=== PATIENT | male | born 1955 | race African-American/Black ===

== ENCOUNTER 2016-12-03 09:25 | Day surgery (SDC) | payer OTHER ==
[2016-12-03] MEDS ORDERED: LACTATED RINGERS 1,000 ML IV ONE (09:57)
[2016-12-03] MEDS ORDERED: MIDAZOLAM 2 MG/2 ML VIAL IVP ONE (11:23)
[2016-12-03] MEDS ORDERED: fentaNYL 100 MCG/2 ML VIAL IVP ONE (11:23)
== END 2016-12-03 09:26 | disposition home or self-care (01) ==
PROC: 0DB48ZX Excision of Esophagogastric Junction, Via Natural or Artificial Opening Endoscopic, Diagnostic (ICD-10-PCS; 2016-12-03)
PROC: 0DB68ZX Excision of Stomach, Via Natural or Artificial Opening Endoscopic, Diagnostic (ICD-10-PCS; principal; 2016-12-03 10:30)
DX: K21.9 Gastro-esophageal reflux disease without esophagitis (principal); K25.9 Gastric ulcer, unspecified as acute or chronic, without hemorrhage or perforation; K44.9 Diaphragmatic hernia without obstruction or gangrene
CPT/HCPCS: 43239; J7120

== ENCOUNTER 2017-04-21 08:00 | Outpatient (CLI) | payer OTHER ==
[2017-04-21 19:11] LABS: PT - PROTHROMBIN TIME 11.5 secs (9.9-12.6)
[2017-04-21 19:13] LABS: BASOPHILS % (AUTO) 0.7 %; EOSINOPHILS # (AUTO) 0.1 10^3/uL (0.0-0.7); EOSINOPHILS % (AUTO) 1.9 %; HCT - HEMATOCRIT 43.5 % (42.0-52.0); HGB - HEMOGLOBIN 14.4 g/dL (14.0-18.0); LYMPHOCYTES # (AUTO) 2.4 10^3/uL (1.5-3.5); LYMPHOCYTES % (AUTO) 45.1 %; MEAN CORPUSCULAR HEMOGLOBIN 30.1 pg (27.0-31.0); MEAN CORPUSCULAR HGB CONC 33.1 g/dL (32.0-36.0); MEAN CORPUSCULAR VOLUME 90.9 fL (80.0-94.0); MEAN PLATELET VOLUME 10.8 fL (7.4-11.4); MONOCYTES # (AUTO) 0.5 10^3/uL (0.0-1.0); MONOCYTES % (AUTO) 9.9 %; NEUTROPHILS # (AUTO) 2.3 10^3/uL (1.5-6.6); NEUTROPHILS % (AUTO) 42.4 %; NUCLEATED RED BLOOD CELLS AUTO 0.3 /100WBC; RED BLOOD COUNT 4.79 10^6/uL (4.70-6.10); RED CELL DISTRIBUTION WIDTH 14.7 % (12.0-15.0); UNCORRECTED WHITE BLOOD COUNT 5.3 x10^3/uL; WHITE BLOOD COUNT 5.3 x10^3/uL (4.8-10.8)
[2017-04-21 19:20] LABS: ALBUMIN/GLOBULIN RATIO 1.1 (1.0-2.2); BILIRUBIN,TOTAL 0.7 mg/dL (0.2-1.0); CREATININE 1.1 mg/dL (0.6-1.2); TOTAL PROTEIN 7.1 g/dL (6.7-8.2)
== END 2017-04-21 08:01 | disposition home or self-care (01) ==
LOC: LAB.WCP 08:00
PROVIDERS: ATTEND Family Medicine
DX: B18.2 Chronic viral hepatitis C (principal)
CPT/HCPCS: 36415; 80053; 85025; 85610; 87522

== ENCOUNTER 2017-08-05 08:28 | Day surgery (SDC) | payer OTHER ==
[2017-08-05] MEDS ORDERED: LACTATED RINGERS 1,000 ML IV ONE (08:37)
[2017-08-05] MEDS ORDERED: MIDAZOLAM 2 MG/2 ML VIAL IVP ONE (09:50)
[2017-08-05] MEDS ORDERED: fentaNYL 100 MCG/2 ML VIAL IVP ONE (09:50)
[2017-08-05 11:07] VITALS: BP 130/70
== END 2017-08-05 08:29 | disposition home or self-care (01) ==
LOC: SDS 08:28
PROVIDERS: ATTEND Internal Medicine
PROC: 0DBN8ZX Excision of Sigmoid Colon, Via Natural or Artificial Opening Endoscopic, Diagnostic (ICD-10-PCS; principal; 2017-08-05 09:30)
DX: K63.5 Polyp of colon (principal); K64.8 Other hemorrhoids; B18.2 Chronic viral hepatitis C; F17.290 Nicotine dependence, other tobacco product, uncomplicated
CPT/HCPCS: 45380; 88305; J7120

== ENCOUNTER 2018-04-05 14:25 | Outpatient (CLI) | payer OTHER ==
[2018-04-05 18:53] LABS: BASOPHILS % (AUTO) 0.7 %; EOSINOPHILS # (AUTO) 0.1 10^3/uL (0.0-0.7); EOSINOPHILS % (AUTO) 1.8 %; HGB - HEMOGLOBIN 13.4 g/dL (14.0-18.0); LYMPHOCYTES # (AUTO) 2.9 10^3/uL (1.5-3.5); LYMPHOCYTES % (AUTO) 56.6 %; MEAN CORPUSCULAR HEMOGLOBIN 29.7 pg (27.0-31.0); MEAN CORPUSCULAR HGB CONC 32.6 g/dL (32.0-36.0); MEAN CORPUSCULAR VOLUME 91.1 fL (80.0-94.0); MEAN PLATELET VOLUME 11.3 fL (7.4-11.4); MONOCYTES # (AUTO) 0.4 10^3/uL (0.0-1.0); MONOCYTES % (AUTO) 8.2 %; NEUTROPHILS # (AUTO) 1.7 10^3/uL (1.5-6.6); NEUTROPHILS % (AUTO) 32.7 %; PLT - PLATELET COUNT 156 10^3/uL (130-450); RED BLOOD COUNT 4.53 10^6/uL (4.70-6.10); RED CELL DISTRIBUTION WIDTH 14.4 % (12.0-15.0); WHITE BLOOD COUNT 5.1 x10^3/uL (4.8-10.8)
[2018-04-05 19:20] LABS: ALBUMIN/GLOBULIN RATIO 1.3 (1.0-2.2); BILIRUBIN,TOTAL 0.6 mg/dL (0.2-1.0); CALCIUM 9.1 mg/dL (8.5-10.3); CREATININE 1.2 mg/dL (0.6-1.2); TOTAL PROTEIN 7.2 g/dL (6.7-8.2)
[2018-04-05 19:27] LABS: PSA FREE 0.892 ng/mL (0.16-2.81)
[2018-04-05 19:28] LABS: PSA TOTAL 2.106 ng/mL (0.000-2.000)
== END 2018-04-05 14:26 ==
LOC: LAB.WCP 14:25
PROVIDERS: ATTEND Physician Assistant Medical
DX: R63.4 Abnormal weight loss (principal); R97.20 Elevated prostate specific antigen [PSA]
CPT/HCPCS: 36415; 80053; 84154; 85025

== ENCOUNTER 2018-04-26 14:54 | Outpatient (CLI) | payer OTHER ==
--- NOTE | 2018-04-28 13:29 | CT Report ---
Procedure Date: 04/27/2018 Accession Number: [id number] / [id number] Procedure: CT - Chest/Lung Screen Low Dose W/O CPT Code: FULL RESULT: EXAM CT LUNG SCREEN EXAM DATE: 04/26/2018 03:07 PM. HISTORY: 62-year-old patient with smoking history. Currently smoking: Yes. Tobacco abuse. Years since quitting: None. COMPARISON: None. TECHNIQUE: CT examination of the entire thorax without contrast was performed using low-dose technique. Thin section coronal, axial, sagittal and MIP axial images were obtained. In accordance with CT protocol optimization, one or more of the following dose reduction techniques were utilized for this exam: automated exposure control, adjustment of mA and/or KV based on patient size, or use of iterative reconstructive technique. FINDINGS: Nodules: Right upper lobe: None. Right middle lobe: None. Right lower lobe: None. Left upper lobe: Lobular left upper lobe 5 mm nodule (image 46, series 4). Left lower lobe: None. Emphysema: None. Pleura: Unremarkable. Aorta: Unremarkable. Mediastinum: Visualized thyroid gland is unremarkable. No enlarged mediastinal or hilar lymph nodes. Heart size is normal. Coronary calcifications: None. Other pulmonary findings: Anterior lingular subpleural opacity possibly scar/atelectasis versus small area of fibrosis, less typical for consolidation. Other extrapulmonary findings: Included portions of the liver, spleen, adrenals, pancreas, kidneys, stomach, and colon are unremarkable. Degenerative changes of the thoracic spine. No acute osseous abnormalities. Thoracic dextroscoliosis. IMPRESSION: Lung-RADS ASSESSMENT CATEGORY: 1 - benign appearance or behavior Probability of malignancy: Less than 1% RECOMMENDATION: Recommend follow-up with continued annual screening with low-dose CT in 12 months. RADIA
== END 2018-04-26 14:55 | disposition home or self-care (01) ==
LOC: DI 14:54
PROVIDERS: ATTEND Physician Assistant Medical
DX: F17.290 Nicotine dependence, other tobacco product, uncomplicated (principal)

== ENCOUNTER 2019-07-27 08:00 | Outpatient (CLI) | payer OTHER ==
[2019-07-27 12:24] LABS: BASOPHILS % (AUTO) 0.7 %; EOSINOPHILS # (AUTO) 0.1 10^3/uL (0.0-0.7); EOSINOPHILS % (AUTO) 2.2 %; HGB - HEMOGLOBIN 13.7 g/dL (14.0-18.0); LYMPHOCYTES # (AUTO) 2.7 10^3/uL (1.5-3.5); LYMPHOCYTES % (AUTO) 45.7 %; MEAN CORPUSCULAR HEMOGLOBIN 29.8 pg (27.0-31.0); MEAN CORPUSCULAR HGB CONC 32.5 g/dL (32.0-36.0); MEAN CORPUSCULAR VOLUME 91.7 fL (80.0-94.0); MONOCYTES # (AUTO) 0.6 10^3/uL (0.0-1.0); MONOCYTES % (AUTO) 10.2 %; NEUTROPHILS # (AUTO) 2.4 10^3/uL (1.5-6.6); PLT - PLATELET COUNT 171 10^3/uL (130-450); RED CELL DISTRIBUTION WIDTH 14.6 % (12.0-15.0); WHITE BLOOD COUNT 5.9 x10^3/uL (4.8-10.8)
[2019-07-27 13:09] LABS: ALBUMIN 4.1 g/dL (3.2-5.5); ALBUMIN/GLOBULIN RATIO 1.3 (1.0-2.2); ALKALINE PHOSPHATASE 90 IU/L (42-121); ALT ALANINE AMINOTRANSFERASE 28 IU/L (10-60); AST ASPARTATE AMINOTRANSFERASE 32 IU/L (10-42); BILIRUBIN,TOTAL 0.6 mg/dL (0.2-1.0); BUN - BLOOD UREA NITROGEN 13 mg/dL (6-20); CALCIUM 9.3 mg/dL (8.5-10.3); CARBON DIOXIDE - CO2 30 mmol/L (21-32); CHLORIDE 103 mmol/L (101-111); CHOL/HDL RATIO 3.6 (<5.0); CHOLESTEROL 148 mg/dL; CREATININE 1.2 mg/dL (0.6-1.2); GFR - MDRD 74 (>89); GLUCOSE 93 mg/dL (70-100); HDL CHOLESTEROL 41 mg/dL; LDL CHOLESTEROL,CALCULATED 89 mg/dL; LDL/HDL RATIO 2.2 (<3.6); SODIUM 141 mmol/L (135-145); TOTAL PROTEIN 7.2 g/dL (6.7-8.2); VLDL CHOLESTEROL 18 mg/dL
== END 2019-07-27 23:59 | disposition home or self-care (01) ==
LOC: LAB.WCP 08:00
PROVIDERS: ATTEND Family Medicine
DX: E78.5 Hyperlipidemia, unspecified (principal); B18.2 Chronic viral hepatitis C; R03.0 Elevated blood-pressure reading, without diagnosis of hypertension; Z12.5 Encounter for screening for malignant neoplasm of prostate
CPT/HCPCS: 36415; 80053; 80061; 83721; 84153; 84443; 85025

== ENCOUNTER 2019-10-28 07:15 | Outpatient (CLI) | payer OTHER ==
[2019-10-28 12:39] LABS: BASOPHILS % (AUTO) 0.7 %; EOSINOPHILS # (AUTO) 0.2 10^3/uL (0.0-0.7); EOSINOPHILS % (AUTO) 3.1 %; LYMPHOCYTES # (AUTO) 2.4 10^3/uL (1.5-3.5); LYMPHOCYTES % (AUTO) 41.5 %; MEAN CORPUSCULAR HEMOGLOBIN 29.3 pg (27.0-31.0); MEAN CORPUSCULAR HGB CONC 31.6 g/dL (32.0-36.0); MEAN CORPUSCULAR VOLUME 92.8 fL (80.0-94.0); MEAN PLATELET VOLUME 12.8 fL (7.4-11.4); MONOCYTES # (AUTO) 0.6 10^3/uL (0.0-1.0); MONOCYTES % (AUTO) 10.5 %; NEUTROPHILS # (AUTO) 2.5 10^3/uL (1.5-6.6); PLT - PLATELET COUNT 163 10^3/uL (130-450); RED BLOOD COUNT 4.43 10^6/uL (4.70-6.10); WHITE BLOOD COUNT 5.7 x10^3/uL (4.8-10.8)
[2019-10-28 12:53] LABS: ALBUMIN 4.2 g/dL (3.2-5.5); ALBUMIN/GLOBULIN RATIO 1.2 (1.0-2.2); BILIRUBIN,TOTAL 0.6 mg/dL (0.2-1.0); CALCIUM 8.9 mg/dL (8.5-10.3); CREATININE 1.3 mg/dL (0.6-1.2); TOTAL PROTEIN 7.6 g/dL (6.7-8.2)
== END 2019-10-28 23:59 | disposition home or self-care (01) ==
LOC: LAB.WCP 07:15
PROVIDERS: ATTEND Internal Medicine Gastroenterology
DX: B18.2 Chronic viral hepatitis C (principal)
CPT/HCPCS: 36415; 80053; 85025; 87522

== ENCOUNTER 2019-11-23 09:10 | Outpatient (CLI) | payer OTHER ==
--- NOTE | 2019-11-23 21:09 | XRAY Report ---
Reason: PNEUMONIA,RT UPPER LOBE Procedure Date: 11/23/2019 Accession Number: [id number] / [id number] Procedure: XR - Chest 2 View X-Ray CPT Code: 54852 Final Report FULL RESULT: EXAM: CHEST RADIOGRAPHY EXAM DATE: 11/23/2019 09:20 AM. CLINICAL HISTORY: PNEUMONIA,RT UPPER LOBE. COMPARISON: CHEST SCREEN LOW DOSE W/O 04/26/2018 3:02 PM. TECHNIQUE: 2 views. FINDINGS: Lungs/Pleura: No focal opacities evident. No pleural effusion. No pneumothorax. Normal volumes. Mediastinum: Heart and mediastinal contours are unremarkable. Other: Lower cervical spine disk space implant. IMPRESSION: Negative chest. Lungs are clear. RADIA
== END 2019-11-23 09:11 | disposition home or self-care (01) ==
LOC: DI 09:10
PROVIDERS: ATTEND Family Medicine
DX: J18.9 Pneumonia, unspecified organism (principal)
CPT/HCPCS: 71046

== ENCOUNTER 2019-12-23 07:00 | Outpatient (CLI) | payer OTHER ==
[2019-12-23 12:44] LABS: BASOPHILS % (AUTO) 0.7 %; EOSINOPHILS # (AUTO) 0.2 10^3/uL (0.0-0.7); EOSINOPHILS % (AUTO) 2.5 %; HGB - HEMOGLOBIN 11.2 g/dL (14.0-18.0); LYMPHOCYTES # (AUTO) 2.1 10^3/uL (1.5-3.5); LYMPHOCYTES % (AUTO) 35.8 %; MEAN CORPUSCULAR HEMOGLOBIN 30.1 pg (27.0-31.0); MEAN CORPUSCULAR HGB CONC 32.2 g/dL (32.0-36.0); MEAN CORPUSCULAR VOLUME 93.5 fL (80.0-94.0); MEAN PLATELET VOLUME 12.6 fL (7.4-11.4); MONOCYTES # (AUTO) 0.6 10^3/uL (0.0-1.0); MONOCYTES % (AUTO) 9.9 %; NEUTROPHILS % (AUTO) 50.8 %; PLT - PLATELET COUNT 168 10^3/uL (130-450); RED BLOOD COUNT 3.72 10^6/uL (4.70-6.10); RED CELL DISTRIBUTION WIDTH 15.7 % (12.0-15.0)
[2019-12-23 13:09] LABS: ALBUMIN 3.4 g/dL (3.2-5.5); BILIRUBIN,TOTAL 0.5 mg/dL (0.2-1.0); CALCIUM 8.6 mg/dL (8.5-10.3); CREATININE 1.1 mg/dL (0.6-1.2); PSA FREE 1.02 ng/mL (0.16-2.81); TOTAL PROTEIN 6.8 g/dL (6.7-8.2)
[2019-12-23 13:10] LABS: PSA TOTAL 3.27 ng/mL (0.000-2.000)
== END 2019-12-23 23:59 | disposition home or self-care (01) ==
LOC: LAB.WCP 07:00
PROVIDERS: ATTEND Family Medicine
DX: B18.2 Chronic viral hepatitis C (principal); R97.20 Elevated prostate specific antigen [PSA]
CPT/HCPCS: 36415; 80053; 84153; 84154; 85025; 87522

== ENCOUNTER 2020-04-02 08:36 | Outpatient (CLI) | payer OTHER ==
[2020-04-02 13:52] LABS: BASOPHILS % (AUTO) 0.7 %; EOSINOPHILS # (AUTO) 0.1 10^3/uL (0.0-0.7); EOSINOPHILS % (AUTO) 3.3 %; HGB - HEMOGLOBIN 12.7 g/dL (14.0-18.0); LYMPHOCYTES # (AUTO) 1.9 10^3/uL (1.5-3.5); LYMPHOCYTES % (AUTO) 45.1 %; MEAN CORPUSCULAR HEMOGLOBIN 28.5 pg (27.0-31.0); MEAN CORPUSCULAR HGB CONC 31.7 g/dL (32.0-36.0); MEAN CORPUSCULAR VOLUME 90.1 fL (80.0-94.0); MEAN PLATELET VOLUME 12.2 fL (7.4-11.4); MONOCYTES # (AUTO) 0.4 10^3/uL (0.0-1.0); NEUTROPHILS # (AUTO) 1.8 10^3/uL (1.5-6.6); NEUTROPHILS % (AUTO) 40.9 %; PLT - PLATELET COUNT 156 10^3/uL (130-450); RED BLOOD COUNT 4.45 10^6/uL (4.70-6.10); RED CELL DISTRIBUTION WIDTH 14.6 % (12.0-15.0); WHITE BLOOD COUNT 4.3 x10^3/uL (4.8-10.8)
[2020-04-02 14:17] LABS: ALBUMIN 3.9 g/dL (3.2-5.5); ALBUMIN/GLOBULIN RATIO 1.1 (1.0-2.2); BILIRUBIN,TOTAL 0.5 mg/dL (0.2-1.0); CREATININE 1.2 mg/dL (0.6-1.2); TOTAL PROTEIN 7.3 g/dL (6.7-8.2)
== END 2020-04-02 23:59 | disposition home or self-care (01) ==
LOC: LAB.WCP 08:36
PROVIDERS: ATTEND Internal Medicine Gastroenterology
DX: B18.2 Chronic viral hepatitis C (principal)
CPT/HCPCS: 36415; 80053; 85025; 87902

== ENCOUNTER 2020-11-29 07:44 | Outpatient (CLI) | payer OTHER ==
[2020-11-29 11:53] LABS: BASOPHILS % (AUTO) 0.6 %; EOSINOPHILS # (AUTO) 0.1 10^3/uL (0.0-0.7); EOSINOPHILS % (AUTO) 1.7 %; HGB - HEMOGLOBIN 10.1 g/dL (14.0-18.0); LYMPHOCYTES # (AUTO) 1.3 10^3/uL (1.5-3.5); LYMPHOCYTES % (AUTO) 23.8 %; MEAN CORPUSCULAR VOLUME 93.8 fL (80.0-94.0); MEAN PLATELET VOLUME 11.6 fL (7.4-11.4); MONOCYTES # (AUTO) 0.5 10^3/uL (0.0-1.0); MONOCYTES % (AUTO) 9.3 %; NEUTROPHILS # (AUTO) 3.4 10^3/uL (1.5-6.6); NEUTROPHILS % (AUTO) 64.4 %; PLT - PLATELET COUNT 179 10^3/uL (130-450); RED BLOOD COUNT 3.37 10^6/uL (4.70-6.10); RED CELL DISTRIBUTION WIDTH 13.7 % (12.0-15.0); WHITE BLOOD COUNT 5.3 x10^3/uL (4.8-10.8)
[2020-11-29 12:30] LABS: ALBUMIN 3.8 g/dL (3.2-5.5); ALBUMIN/GLOBULIN RATIO 1.1 (1.0-2.2); ALKALINE PHOSPHATASE 89 IU/L (42-121); ALT ALANINE AMINOTRANSFERASE 17 IU/L (10-60); AST ASPARTATE AMINOTRANSFERASE 23 IU/L (10-42); BILIRUBIN,TOTAL 0.4 mg/dL (0.2-1.0); BUN - BLOOD UREA NITROGEN 17 mg/dL (6-20); CALCIUM 8.9 mg/dL (8.5-10.3); CARBON DIOXIDE - CO2 25 mmol/L (21-32); CHLORIDE 108 mmol/L (101-111); CHOL/HDL RATIO 2.9 (<5.0); CHOLESTEROL 84 mg/dL; CREATININE 1.2 mg/dL (0.6-1.2); GLUCOSE 100 mg/dL (70-100); HDL CHOLESTEROL 29 mg/dL; LDL CHOLESTEROL,CALCULATED 47 mg/dL; LDL/HDL RATIO 1.6 (<3.6); SODIUM 140 mmol/L (135-145); TOTAL PROTEIN 7.3 g/dL (6.7-8.2); VLDL CHOLESTEROL 8 mg/dL
== END 2020-11-29 23:59 | disposition home or self-care (01) ==
LOC: LAB.WCP 07:44
PROVIDERS: ATTEND Family Medicine
DX: B18.2 Chronic viral hepatitis C (principal); E78.5 Hyperlipidemia, unspecified; R97.20 Elevated prostate specific antigen [PSA]; R03.0 Elevated blood-pressure reading, without diagnosis of hypertension; L03.90 Cellulitis, unspecified
CPT/HCPCS: 36415; 80053; 80061; 83721; 84153; 84443; 85025

== ENCOUNTER 2021-07-11 08:00 | Outpatient (CLI) | payer OTHER ==
[2021-07-11 11:54] LABS: ALBUMIN 3.8 g/dL (3.2-5.5); BILIRUBIN,DIRECT 0.1 mg/dL (0.1-0.5); BILIRUBIN,TOTAL 0.5 mg/dL (0.2-1.0)
== END 2021-07-11 23:59 | disposition home or self-care (01) ==
LOC: LAB.WCP 08:00
PROVIDERS: ATTEND Family Medicine
DX: B18.2 Chronic viral hepatitis C (principal)
CPT/HCPCS: 36415; 80076

== ENCOUNTER 2022-02-18 07:07 | Outpatient (CLI) | payer OTHER, MEDICARE ==
[2022-02-18 12:36] LABS: BASOPHILS % (AUTO) 0.7 %; EOSINOPHILS # (AUTO) 0.1 10^3/uL (0.0-0.7); EOSINOPHILS % (AUTO) 1.9 %; HCT - HEMATOCRIT 33.3 % (42.0-52.0); HGB - HEMOGLOBIN 10.2 g/dL (14.0-18.0); LYMPHOCYTES # (AUTO) 1.6 10^3/uL (1.5-3.5); LYMPHOCYTES % (AUTO) 39.7 %; MEAN CORPUSCULAR HEMOGLOBIN 24.3 pg (27.0-31.0); MEAN CORPUSCULAR HGB CONC 30.6 g/dL (32.0-36.0); MEAN CORPUSCULAR VOLUME 79.5 fL (80.0-94.0); MEAN PLATELET VOLUME 11.3 fL (7.4-11.4); MONOCYTES # (AUTO) 0.5 10^3/uL (0.0-1.0); MONOCYTES % (AUTO) 12.8 %; NEUTROPHILS # (AUTO) 1.8 10^3/uL (1.5-6.6); NEUTROPHILS % (AUTO) 44.7 %; PLT - PLATELET COUNT 206 10^3/uL (130-450); RED BLOOD COUNT 4.19 10^6/uL (4.70-6.10); RED CELL DISTRIBUTION WIDTH 18.9 % (12.0-15.0); WHITE BLOOD COUNT 4.1 x10^3/uL (4.8-10.8)
[2022-02-18 13:28] LABS: THYROID STIMULATING HORMONE 1.14 uIU/mL (0.34-5.60)
[2022-02-18 13:43] LABS: ALBUMIN/GLOBULIN RATIO 1.4 (1.0-2.2); ALKALINE PHOSPHATASE 98 IU/L (42-121); ALT ALANINE AMINOTRANSFERASE 17 IU/L (10-60); AST ASPARTATE AMINOTRANSFERASE 20 IU/L (10-42); BILIRUBIN,TOTAL 0.7 mg/dL (0.2-1.0); BUN - BLOOD UREA NITROGEN 16 mg/dL (6-20); CALCIUM 8.9 mg/dL (8.5-10.3); CARBON DIOXIDE - CO2 26 mmol/L (21-32); CHLORIDE 105 mmol/L (101-111); CHOL/HDL RATIO 2.4 (<5.0); CHOLESTEROL 96 mg/dL; CREATININE 1.3 mg/dL (0.6-1.2); GFR - MDRD 67 (>89); GLUCOSE 91 mg/dL (70-100); HDL CHOLESTEROL 40 mg/dL; POTASSIUM 3.8 mmol/L (3.5-5.0); SODIUM 138 mmol/L (135-145); TOTAL PROTEIN 6.9 g/dL (6.7-8.2); TRIGLYCERIDES 39 mg/dL
[2022-02-20 19:50] LABS: HCV RNA QNT <1.18 NOT DETECTED Log IU/mL; HCV RNA QUANT RT PCR <15 NOT DETECTED IU/mL
== END 2022-02-18 07:08 | disposition home or self-care (01) ==
LOC: LAB.N 07:07
PROVIDERS: ATTEND Family Medicine
DX: I10 Essential (primary) hypertension (principal); I25.10 Atherosclerotic heart disease of native coronary artery without angina pectoris; M54.12 Radiculopathy, cervical region; B18.2 Chronic viral hepatitis C; E78.5 Hyperlipidemia, unspecified
CPT/HCPCS: 36415; 80053; 80061; 83721; 84443; 85025; 87522

== ENCOUNTER 2022-04-03 07:15 | Outpatient (CLI) | payer OTHER, MEDICARE ==
[2022-04-03 12:35] LABS: FERRITIN 6.9 ng/mL (23.9-336.2)
[2022-04-03 12:50] LABS: % IRON SATURATION 4 % (20-50); IRON 18 ug/dL (45-182); TOTAL IRON BINDING CAPACITY 486 ug/dL (250-450); TRANSFERRIN 347 mg/dL (180-329)
== END 2022-04-03 07:16 | disposition home or self-care (01) ==
LOC: LAB.N 07:15
PROVIDERS: ATTEND Family Medicine
DX: D64.9 Anemia, unspecified (principal)
CPT/HCPCS: 36415; 82607; 82728; 83540; 84466

== ENCOUNTER 2022-04-04 08:00 | Outpatient (CLI) | payer OTHER, MEDICARE ==
[2022-04-04 13:22] LABS: FECAL OCCULT BLOOD (FIT) NEGATIVE (NEGATIVE)
== END 2022-04-04 23:59 | disposition home or self-care (01) ==
LOC: LAB.R 08:00
PROVIDERS: ATTEND Family Medicine
DX: D64.9 Anemia, unspecified (principal)
CPT/HCPCS: 82274

== ENCOUNTER 2022-04-04 12:16 | Outpatient (CLI) | payer OTHER, MEDICARE ==
[2022-04-04 17:46] LABS: BILIRUBIN,URINE NEGATIVE (NEGATIVE); GLUCOSE, URINE (UA) NEGATIVE (NEGATIVE); KETONES,URINE (UA) NEGATIVE (NEGATIVE); LEUKOCYTE ESTERASE, URINE NEGATIVE (NEGATIVE); NITRITE,URINE NEGATIVE (NEGATIVE); OCCULT BLOOD,URINE NEGATIVE (NEGATIVE); PH,URINE 5.5 PH (5.0-7.5); PROTEIN,URINE NEGATIVE (NEGATIVE); UROBILINOGEN,URINE 0.2 (NORMAL) E.U./dL (NORMAL)
[2022-04-04 17:50] LABS: CLARITY,URINE CLEAR (CLEAR)
[2022-04-04 17:55] LABS: BACTERIA,URINE None Seen /HPF (None Seen); RBC,URINE 0-5 /HPF (0-5); SQUAMOUS EPITHELIAL CELL,UR NONE SEEN (<= Few); WBC,URINE 0-3 /HPF (0-3)
== END 2022-04-04 12:17 | disposition home or self-care (01) ==
LOC: LAB.N 12:16
PROVIDERS: ATTEND Internal Medicine
DX: N40.1 Benign prostatic hyperplasia with lower urinary tract symptoms (principal); D64.9 Anemia, unspecified
CPT/HCPCS: 36415; 81001; 82274; 84153; 87086

== ENCOUNTER 2022-06-11 07:16 | Outpatient (CLI) | payer OTHER, MEDICARE ==
[2022-06-11 12:13] LABS: ABSOLUTE RETICS # AUTO 0.056 10^6/uL (0.020-0.110); BASOPHILS % (AUTO) 0.6 %; EOSINOPHILS # (AUTO) 0.1 10^3/uL (0.0-0.7); HCT - HEMATOCRIT 39.1 % (42.0-52.0); HGB - HEMOGLOBIN 12.9 g/dL (14.0-18.0); LYMPHOCYTES # (AUTO) 1.6 10^3/uL (1.5-3.5); LYMPHOCYTES % (AUTO) 32.8 %; MEAN CORPUSCULAR HEMOGLOBIN 27.9 pg (27.0-31.0); MEAN CORPUSCULAR VOLUME 84.6 fL (80.0-94.0); MONOCYTES # (AUTO) 0.6 10^3/uL (0.0-1.0); MONOCYTES % (AUTO) 12.3 %; NEUTROPHILS # (AUTO) 2.5 10^3/uL (1.5-6.6); NEUTROPHILS % (AUTO) 52.1 %; PLT - PLATELET COUNT 141 10^3/uL (130-450); RED BLOOD COUNT 4.62 10^6/uL (4.70-6.10); RED CELL DISTRIBUTION WIDTH 23.3 % (12.0-15.0); RETICULOCYTE COUNT % (AUTO) 1.21 % (0.5-2.3); WHITE BLOOD COUNT 4.9 x10^3/uL (4.8-10.8)
[2022-06-11 12:30] LABS: % IRON SATURATION 24 % (20-50); ALBUMIN/GLOBULIN RATIO 1.3 (1.0-2.2); ALKALINE PHOSPHATASE 82 IU/L (42-121); ALT ALANINE AMINOTRANSFERASE 15 IU/L (10-60); AST ASPARTATE AMINOTRANSFERASE 20 IU/L (10-42); BILIRUBIN,TOTAL 0.7 mg/dL (0.2-1.0); BUN - BLOOD UREA NITROGEN 15 mg/dL (6-20); CALCIUM 9.1 mg/dL (8.5-10.3); CARBON DIOXIDE - CO2 29 mmol/L (21-32); CHLORIDE 105 mmol/L (101-111); CHOL/HDL RATIO 2.5 (<5.0); CHOLESTEROL 96 mg/dL; CREATININE 1.3 mg/dL (0.6-1.2); GFR - MDRD 67 (>89); GLUCOSE 91 mg/dL (70-100); HDL CHOLESTEROL 39 mg/dL; IRON 90 ug/dL (45-182); LDL CHOLESTEROL,CALCULATED 48 mg/dL; LDL/HDL RATIO 1.2 (<3.6); POTASSIUM 3.8 mmol/L (3.5-5.0); SODIUM 141 mmol/L (135-145); TOTAL IRON BINDING CAPACITY 378 ug/dL (250-450); TOTAL PROTEIN 7.2 g/dL (6.7-8.2); TRANSFERRIN 270 mg/dL (180-329); TRIGLYCERIDES 47 mg/dL; VLDL CHOLESTEROL 9 mg/dL
[2022-06-11 12:41] LABS: THYROID STIMULATING HORMONE 1.39 uIU/mL (0.34-5.60)
[2022-06-11 12:45] LABS: FERRITIN 25.1 ng/mL (23.9-336.2)
[2022-06-11 12:52] LABS: PLATELET ESTIMATE, MANUAL NORMAL (130-450,000) (NORMAL); PLATELET MORPHOLOGY NORMAL APPEARANCE (NORMAL); RBC MORPHOLOGY (MULTIPLE) 3+ ANISOCYTOSIS (NORMAL); SLIDE REVIEW? Indicated; WBC MORPHOLOGY (MULTIPLE) NORMAL APPEARANCE (NORMAL)
== END 2022-06-11 07:17 | disposition home or self-care (01) ==
LOC: LAB.N 07:16
PROVIDERS: ATTEND Family Medicine
DX: D50.9 Iron deficiency anemia, unspecified (principal); I10 Essential (primary) hypertension; I25.10 Atherosclerotic heart disease of native coronary artery without angina pectoris; Z12.5 Encounter for screening for malignant neoplasm of prostate; E78.5 Hyperlipidemia, unspecified; K21.9 Gastro-esophageal reflux disease without esophagitis; Z72.0 Tobacco use
CPT/HCPCS: 36415; 80053; 80061; 82728; 83540; 83721; 84153; 84443; 84466; 85025; 85045

== ENCOUNTER 2022-08-14 08:16 | Outpatient (CLI) | payer OTHER, MEDICARE ==
[2022-08-14 12:02] LABS: ABSOLUTE RETICS # AUTO 0.056 10^6/uL (0.020-0.110); BASOPHILS % (AUTO) 0.6 %; EOSINOPHILS # (AUTO) 0.1 10^3/uL (0.0-0.7); EOSINOPHILS % (AUTO) 1.7 %; HCT - HEMATOCRIT 39.2 % (42.0-52.0); LYMPHOCYTES # (AUTO) 1.7 10^3/uL (1.5-3.5); LYMPHOCYTES % (AUTO) 35.6 %; MEAN CORPUSCULAR HEMOGLOBIN 29.7 pg (27.0-31.0); MEAN CORPUSCULAR HGB CONC 33.2 g/dL (32.0-36.0); MEAN CORPUSCULAR VOLUME 89.7 fL (80.0-94.0); MEAN PLATELET VOLUME 11.8 fL (7.4-11.4); MONOCYTES # (AUTO) 0.5 10^3/uL (0.0-1.0); MONOCYTES % (AUTO) 9.9 %; NEUTROPHILS # (AUTO) 2.4 10^3/uL (1.5-6.6); NEUTROPHILS % (AUTO) 52.2 %; PLT - PLATELET COUNT 132 10^3/uL (130-450); RED BLOOD COUNT 4.37 10^6/uL (4.70-6.10); RED CELL DISTRIBUTION WIDTH 17.5 % (12.0-15.0); RETICULOCYTE COUNT % (AUTO) 1.27 % (0.5-2.3); WHITE BLOOD COUNT 4.6 x10^3/uL (4.8-10.8)
[2022-08-14 13:07] LABS: % IRON SATURATION 21 % (20-50); IRON 63 ug/dL (45-182); TOTAL IRON BINDING CAPACITY 305 ug/dL (250-450); TRANSFERRIN 218 mg/dL (180-329)
== END 2022-08-14 08:17 | disposition home or self-care (01) ==
LOC: LAB.N 08:16
PROVIDERS: ATTEND Family Medicine
DX: D50.9 Iron deficiency anemia, unspecified (principal)
CPT/HCPCS: 36415; 82728; 83540; 84466; 85025; 85045

== ENCOUNTER 2022-09-05 09:10 | Outpatient (CLI) | payer OTHER, MEDICARE ==
[2022-09-05 12:29] LABS: BASOPHILS % (AUTO) 0.5 %; EOSINOPHILS # (AUTO) 0.1 10^3/uL (0.0-0.7); EOSINOPHILS % (AUTO) 1.5 %; HCT - HEMATOCRIT 38.4 % (42.0-52.0); HGB - HEMOGLOBIN 12.4 g/dL (14.0-18.0); LYMPHOCYTES # (AUTO) 1.4 10^3/uL (1.5-3.5); MEAN CORPUSCULAR HGB CONC 32.3 g/dL (32.0-36.0); MEAN PLATELET VOLUME 11.6 fL (7.4-11.4); MONOCYTES # (AUTO) 0.4 10^3/uL (0.0-1.0); MONOCYTES % (AUTO) 10.4 %; NEUTROPHILS # (AUTO) 2.2 10^3/uL (1.5-6.6); NEUTROPHILS % (AUTO) 53.4 %; PLT - PLATELET COUNT 126 10^3/uL (130-450); RED BLOOD COUNT 4.13 10^6/uL (4.70-6.10); RED CELL DISTRIBUTION WIDTH 15.9 % (12.0-15.0); WHITE BLOOD COUNT 4.1 x10^3/uL (4.8-10.8)
== END 2022-09-05 09:11 | disposition home or self-care (01) ==
LOC: LAB.N 09:10
PROVIDERS: ATTEND Family Medicine
DX: D64.9 Anemia, unspecified (principal)
CPT/HCPCS: 36415; 85025

== ENCOUNTER 2023-06-12 07:14 | Outpatient (CLI) | payer OTHER, MEDICARE ==
[2023-06-12 12:31] LABS: BASOPHILS % (AUTO) 0.5 %; EOSINOPHILS # (AUTO) 0.1 10^3/uL (0.0-0.7); EOSINOPHILS % (AUTO) 1.8 %; HCT - HEMATOCRIT 41.6 % (42.0-52.0); HGB - HEMOGLOBIN 13.6 g/dL (14.0-18.0); LYMPHOCYTES # (AUTO) 1.7 10^3/uL (1.5-3.5); LYMPHOCYTES % (AUTO) 30.4 %; MEAN CORPUSCULAR HEMOGLOBIN 30.3 pg (27.0-31.0); MEAN CORPUSCULAR HGB CONC 32.7 g/dL (32.0-36.0); MEAN CORPUSCULAR VOLUME 92.7 fL (80.0-94.0); MEAN PLATELET VOLUME 12.6 fL (7.4-11.4); MONOCYTES # (AUTO) 0.7 10^3/uL (0.0-1.0); MONOCYTES % (AUTO) 11.8 %; NEUTROPHILS # (AUTO) 3.2 10^3/uL (1.5-6.6); NEUTROPHILS % (AUTO) 55.3 %; PLT - PLATELET COUNT 150 10^3/uL (130-450); RED BLOOD COUNT 4.49 10^6/uL (4.70-6.10); RED CELL DISTRIBUTION WIDTH 14.8 % (12.0-15.0); WHITE BLOOD COUNT 5.7 x10^3/uL (4.8-10.8)
[2023-06-12 12:46] LABS: ALBUMIN 4.2 g/dL (3.2-5.5); ALBUMIN/GLOBULIN RATIO 1.4 (1.0-2.2); ALKALINE PHOSPHATASE 110 IU/L (42-121); ALT ALANINE AMINOTRANSFERASE 11 IU/L (10-60); AST ASPARTATE AMINOTRANSFERASE 18 IU/L (10-42); BILIRUBIN,TOTAL 0.4 mg/dL (0.2-1.0); BUN - BLOOD UREA NITROGEN 15 mg/dL (6-20); CALCIUM 9.2 mg/dL (8.5-10.3); CARBON DIOXIDE - CO2 31 mmol/L (21-32); CHLORIDE 107 mmol/L (101-111); CHOLESTEROL 95 mg/dL; CREATININE 1.2 mg/dL (0.6-1.3); GFR - MDRD 73 (>89); GLUCOSE 90 mg/dL (74-104); HDL CHOLESTEROL 32 mg/dL; LDL CHOLESTEROL,CALCULATED 48 mg/dL; LDL/HDL RATIO 1.5 (<3.6); POTASSIUM 4.1 mmol/L (3.5-4.5); SODIUM 140 mmol/L (135-145); TOTAL PROTEIN 7.2 g/dL (6.4-8.9); TRIGLYCERIDES 74 mg/dL (48-352); VLDL CHOLESTEROL 15 mg/dL
== END 2023-06-12 07:15 | disposition home or self-care (01) ==
LOC: LAB.N 07:14
PROVIDERS: ATTEND Internal Medicine Cardiovascular Disease
DX: I25.10 Atherosclerotic heart disease of native coronary artery without angina pectoris (principal)
CPT/HCPCS: 36415; 80053; 80061; 83721; 85025

== ENCOUNTER 2023-08-18 07:26 | Outpatient (CLI) | payer OTHER, MEDICARE ==
[2023-08-18 13:05] LABS: BASOPHILS % (AUTO) 0.8 %; EOSINOPHILS # (AUTO) 0.1 10^3/uL (0.0-0.7); EOSINOPHILS % (AUTO) 3.1 %; HCT - HEMATOCRIT 38.8 % (42.0-52.0); HGB - HEMOGLOBIN 12.6 g/dL (14.0-18.0); LYMPHOCYTES # (AUTO) 1.4 10^3/uL (1.5-3.5); LYMPHOCYTES % (AUTO) 38.4 %; MEAN CORPUSCULAR HEMOGLOBIN 29.9 pg (27.0-31.0); MEAN CORPUSCULAR HGB CONC 32.5 g/dL (32.0-36.0); MEAN CORPUSCULAR VOLUME 92.2 fL (80.0-94.0); MEAN PLATELET VOLUME 12.3 fL (7.4-11.4); MONOCYTES # (AUTO) 0.3 10^3/uL (0.0-1.0); MONOCYTES % (AUTO) 7.6 %; NEUTROPHILS # (AUTO) 1.8 10^3/uL (1.5-6.6); NEUTROPHILS % (AUTO) 50.1 %; PLT - PLATELET COUNT 163 10^3/uL (130-450); RED BLOOD COUNT 4.21 10^6/uL (4.70-6.10); RED CELL DISTRIBUTION WIDTH 14.1 % (12.0-15.0); WHITE BLOOD COUNT 3.6 x10^3/uL (4.8-10.8)
[2023-08-18 13:06] LABS: CALCIUM 9.3 mg/dL (8.5-10.3); CREATININE 1.2 mg/dL (0.6-1.3); POTASSIUM 3.9 mmol/L (3.5-4.5)
[2023-08-18 14:07] LABS: INR 1.3 (0.8-1.2); PT - PROTHROMBIN TIME 13.9 secs (9.9-12.6)
== END 2023-08-18 07:27 | disposition home or self-care (01) ==
LOC: LAB.N 07:26
PROVIDERS: ATTEND Family Medicine
DX: I25.118 Atherosclerotic heart disease of native coronary artery with other forms of angina pectoris (principal)
CPT/HCPCS: 36415; 80048; 85025; 85610

== ENCOUNTER 2023-08-19 13:36 | Outpatient (CLI) | payer OTHER, MEDICARE ==
[2023-08-19 17:39] LABS: BASOPHILS % (AUTO) 0.8 %; EOSINOPHILS # (AUTO) 0.1 10^3/uL (0.0-0.7); EOSINOPHILS % (AUTO) 2.7 %; HCT - HEMATOCRIT 35.1 % (42.0-52.0); HGB - HEMOGLOBIN 11.4 g/dL (14.0-18.0); LYMPHOCYTES # (AUTO) 1.5 10^3/uL (1.5-3.5); MEAN CORPUSCULAR HEMOGLOBIN 30.2 pg (27.0-31.0); MEAN CORPUSCULAR HGB CONC 32.5 g/dL (32.0-36.0); MEAN CORPUSCULAR VOLUME 93.1 fL (80.0-94.0); MEAN PLATELET VOLUME 11.8 fL (7.4-11.4); MONOCYTES # (AUTO) 0.4 10^3/uL (0.0-1.0); MONOCYTES % (AUTO) 9.9 %; NEUTROPHILS # (AUTO) 1.7 10^3/uL (1.5-6.6); NEUTROPHILS % (AUTO) 46.3 %; PLT - PLATELET COUNT 147 10^3/uL (130-450); RED BLOOD COUNT 3.77 10^6/uL (4.70-6.10); RED CELL DISTRIBUTION WIDTH 14.2 % (12.0-15.0); WHITE BLOOD COUNT 3.8 x10^3/uL (4.8-10.8)
[2023-08-19 18:43] LABS: FERRITIN 50.5 ng/mL (23.9-336.2)
== END 2023-08-19 13:37 | disposition home or self-care (01) ==
LOC: LAB.N 13:36
PROVIDERS: ATTEND Physician Assistant
DX: D62 Acute posthemorrhagic anemia (principal)
CPT/HCPCS: 36415; 82728; 83540; 84466; 85025

== ENCOUNTER 2023-08-20 08:00 | Outpatient (CLI) | payer OTHER, MEDICARE ==
[2023-08-20 11:44] LABS: FECAL OCCULT BLOOD (FIT) POSITIVE (NEGATIVE)
== END 2023-08-20 23:59 | disposition home or self-care (01) ==
LOC: LAB.R 08:00
PROVIDERS: ATTEND Physician Assistant
DX: D62 Acute posthemorrhagic anemia (principal)
CPT/HCPCS: 82274

== ENCOUNTER 2023-08-26 07:55 | Outpatient (CLI) | payer OTHER, MEDICARE ==
[2023-08-26 11:56] LABS: BASOPHILS % (AUTO) 0.5 %; EOSINOPHILS # (AUTO) 0.1 10^3/uL (0.0-0.7); EOSINOPHILS % (AUTO) 2.6 %; HCT - HEMATOCRIT 37.2 % (42.0-52.0); HGB - HEMOGLOBIN 12.3 g/dL (14.0-18.0); LYMPHOCYTES # (AUTO) 1.3 10^3/uL (1.5-3.5); LYMPHOCYTES % (AUTO) 34.2 %; MEAN CORPUSCULAR HEMOGLOBIN 30.8 pg (27.0-31.0); MEAN CORPUSCULAR HGB CONC 33.1 g/dL (32.0-36.0); MEAN CORPUSCULAR VOLUME 93.2 fL (80.0-94.0); MEAN PLATELET VOLUME 11.9 fL (7.4-11.4); MONOCYTES # (AUTO) 0.3 10^3/uL (0.0-1.0); MONOCYTES % (AUTO) 8.7 %; NEUTROPHILS # (AUTO) 2.1 10^3/uL (1.5-6.6); NEUTROPHILS % (AUTO) 53.7 %; PLT - PLATELET COUNT 146 10^3/uL (130-450); RED BLOOD COUNT 3.99 10^6/uL (4.70-6.10); RED CELL DISTRIBUTION WIDTH 14.3 % (12.0-15.0); WHITE BLOOD COUNT 3.9 x10^3/uL (4.8-10.8)
== END 2023-08-26 07:56 | disposition home or self-care (01) ==
LOC: LAB.N 07:55
PROVIDERS: ATTEND Internal Medicine Cardiovascular Disease
DX: D64.9 Anemia, unspecified (principal)
CPT/HCPCS: 36415; 85025

== ENCOUNTER 2024-02-11 07:07 | Outpatient (CLI) | payer MEDICARE, OTHER ==
[2024-02-11 11:53] LABS: EOSINOPHILS # (AUTO) 0.1 10^3/uL (0.0-0.7); HGB - HEMOGLOBIN 7.2 g/dL (14.0-18.0); LYMPHOCYTES # (AUTO) 1.2 10^3/uL (1.5-3.5); LYMPHOCYTES % (AUTO) 28.9 %; MEAN CORPUSCULAR HEMOGLOBIN 20.5 pg (27.0-31.0); MEAN CORPUSCULAR HGB CONC 27.7 g/dL (32.0-36.0); MEAN CORPUSCULAR VOLUME 73.9 fL (80.0-94.0); MEAN PLATELET VOLUME 10.8 fL (7.4-11.4); MONOCYTES # (AUTO) 0.6 10^3/uL (0.0-1.0); MONOCYTES % (AUTO) 13.9 %; NEUTROPHILS # (AUTO) 2.2 10^3/uL (1.5-6.6); PLT - PLATELET COUNT 264 10^3/uL (130-450); RED BLOOD COUNT 3.52 10^6/uL (4.70-6.10); RED CELL DISTRIBUTION WIDTH 18.3 % (12.0-15.0); WHITE BLOOD COUNT 4.1 x10^3/uL (4.8-10.8)
[2024-02-11 12:00] LABS: SLIDE REVIEW? Indicated
[2024-02-11 12:15] LABS: ALBUMIN 4.1 g/dL (3.2-5.5); ALBUMIN/GLOBULIN RATIO 1.4 (1.0-2.2); ALKALINE PHOSPHATASE 83 IU/L (42-121); ALT ALANINE AMINOTRANSFERASE 14 IU/L (10-60); AST ASPARTATE AMINOTRANSFERASE 19 IU/L (10-42); BILIRUBIN,TOTAL 0.5 mg/dL (0.2-1.0); BUN - BLOOD UREA NITROGEN 16 mg/dL (6-20); CALCIUM 9.4 mg/dL (8.5-10.3); CARBON DIOXIDE - CO2 26 mmol/L (21-32); CHLORIDE 108 mmol/L (101-111); CHOL/HDL RATIO 2.3 (<5.0); CHOLESTEROL 77 mg/dL; CREATININE 1.3 mg/dL (0.6-1.3); GFR - MDRD 67 (>89); GLUCOSE 94 mg/dL (74-104); HDL CHOLESTEROL 34 mg/dL; LDL CHOLESTEROL,CALCULATED 31 mg/dL; LDL/HDL RATIO 0.9 (<3.6); POTASSIUM 4.4 mmol/L (3.5-4.5); SODIUM 139 mmol/L (135-145); TRIGLYCERIDES 61 mg/dL (48-352); VLDL CHOLESTEROL 12 mg/dL
[2024-02-11 12:20] LABS: THYROID STIMULATING HORMONE 1.03 uIU/mL (0.34-5.60)
[2024-02-11 12:57] LABS: ESTIMATED AVERAGE GLUCOSE 126 mg/dL (70-100)
[2024-02-11 13:16] LABS: PLATELET ESTIMATE, MANUAL NORMAL (130-450,000) (NORMAL); PLATELET MORPHOLOGY NORMAL APPEARANCE (NORMAL); RBC MORPHOLOGY (MULTIPLE) 2+ HYPOCHROMASIA (NORMAL)
== END 2024-02-11 07:08 | disposition home or self-care (01) ==
LOC: LAB.N 07:07
PROVIDERS: ATTEND Family Medicine
DX: I10 Essential (primary) hypertension (principal); R73.9 Hyperglycemia, unspecified; I25.2 Old myocardial infarction; D50.9 Iron deficiency anemia, unspecified; N40.1 Benign prostatic hyperplasia with lower urinary tract symptoms; I25.10 Atherosclerotic heart disease of native coronary artery without angina pectoris; R97.20 Elevated prostate specific antigen [PSA]; Z12.5 Encounter for screening for malignant neoplasm of prostate; B18.2 Chronic viral hepatitis C; E78.5 Hyperlipidemia, unspecified
CPT/HCPCS: 36415; 80053; 80061; 83036; 84443; 85025; 86803; G0103; 83721; 84153

== ENCOUNTER 2024-02-27 09:54 | Outpatient (CLI) | payer MEDICARE, OTHER ==
--- NOTE | 2024-02-27 17:03 | XRAY Report ---
PROCEDURE: Chest 2V INDICATIONS: ORTHOPNEA TECHNIQUE: 2 views of the chest were acquired. COMPARISON: Chest x-ray 8 11/23/2019 FINDINGS: Surgical changes and devices: None. Lungs and pleura: Minimal blunting of the costophrenic angles. Mediastinum: Mediastinal contours appear normal. Heart size is mildly enlarged. B ones and chest wall: No suspicious bony lesions. Overlying soft tissues appear unremarkable. IMPRESSION: Minimal costophrenic angle blunting suggestive of minimal effusions versus scarring. Reviewed by: Julissa Aleman MD on 02/27/2024 5:02 PM PDT Approved by: Julissa Aleman MD on 02/27/2024 5:02 PM PDT Station ID: [id number]
--- NOTE | 2024-02-27 17:07 | XRAY Report ---
PROCEDURE: Abdomen 2 V INDICATIONS: DIARRHEAL STOOLS TECHNIQUE: 2 views of the abdomen were acquired. COMPARISON: Lumbar spine 04/07/2017 FINDINGS: Surgical changes and devices: None. Bowel: No pneumoperitoneum. The bowel gas pattern is normal. Stool load within normal limits. Soft tissues: No masses; visualized solid organ contours appear normal in size. No suspicious abdom inal calcifications. Bones: No suspicious bony abnormalities. IMPRESSION: No obstruction. Mild scattered stool. Reviewed by: Julissa Aleman MD on 02/27/2024 5:06 PM PDT Approved by: Julissa Aleman MD on 02/27/2024 5:06 PM PDT Station ID: [id number]
== END 2024-02-27 09:55 | disposition home or self-care (01) ==
LOC: DI 09:54
PROVIDERS: ATTEND Family Medicine
DX: R06.01 Orthopnea (principal); R19.7 Diarrhea, unspecified

== ENCOUNTER 2024-03-28 18:24 | Outpatient (CLI) | payer MEDICARE, OTHER ==
--- NOTE | 2024-03-29 14:04 | XRAY Report ---
PROCEDURE: Chest 2V INDICATIONS: ORTHOPNEA TECHNIQUE: 2 views of the chest were acquired. COMPARISON: None. FINDINGS: Surgical changes and devices: None. Lungs and pleura: Mild interstitial pulmonary edema. No focal infiltrate. No pleural fluid. No pneum othorax. Mediastinum: Mediastinal contours appear normal. Mild cardiomegaly. Bones and chest wall: No suspicious bony lesions. Overlying soft tissues appear unremarkable. IMPRESSION: Subtle changes of congestive heart failure Reviewed by: Vinnie Olmos MD on 03/29/2024 2:02 PM PDT Approved by: Vinnie Olmos MD on 03/29/2024 2:02 PM PDT Station ID: [id number]
== END 2024-03-28 18:25 | disposition home or self-care (01) ==
LOC: DI 18:24
PROVIDERS: ATTEND Physician Assistant Medical
DX: I50.9 Heart failure, unspecified (principal)
CPT/HCPCS: 36415; 80048; 83880; 85025

== ENCOUNTER 2024-03-28 18:53 | Outpatient (CLI) | payer MEDICARE, OTHER ==
[2024-03-28 20:40] LABS: BASOPHILS % (AUTO) 0.7 %; EOSINOPHILS # (AUTO) 0.1 10^3/uL (0.0-0.7); EOSINOPHILS % (AUTO) 1.9 %; HCT - HEMATOCRIT 22.7 % (42.0-52.0); LYMPHOCYTES # (AUTO) 1.5 10^3/uL (1.5-3.5); LYMPHOCYTES % (AUTO) 33.9 %; MEAN CORPUSCULAR HEMOGLOBIN 18.3 pg (27.0-31.0); MEAN CORPUSCULAR HGB CONC 26.4 g/dL (32.0-36.0); MEAN CORPUSCULAR VOLUME 69.4 fL (80.0-94.0); MEAN PLATELET VOLUME 10.3 fL (7.4-11.4); MONOCYTES # (AUTO) 0.5 10^3/uL (0.0-1.0); MONOCYTES % (AUTO) 12.5 %; NEUTROPHILS # (AUTO) 2.2 10^3/uL (1.5-6.6); NEUTROPHILS % (AUTO) 50.8 %; PLT - PLATELET COUNT 267 10^3/uL (130-450); RED BLOOD COUNT 3.27 10^6/uL (4.70-6.10); RED CELL DISTRIBUTION WIDTH 19.6 % (12.0-15.0); WHITE BLOOD COUNT 4.3 x10^3/uL (4.8-10.8)
[2024-03-28 20:55] LABS: SLIDE REVIEW? Indicated
[2024-03-28 20:56] LABS: CALCIUM 9.2 mg/dL (8.5-10.3); CREATININE 1.2 mg/dL (0.6-1.3); POTASSIUM 4.2 mmol/L (3.5-4.5)
[2024-03-28 22:27] LABS: PLATELET ESTIMATE, MANUAL NORMAL (130-450,000) (NORMAL); PLATELET MORPHOLOGY NORMAL APPEARANCE (NORMAL)
== END 2024-03-28 18:54 | disposition home or self-care (01) ==
LOC: LAB.N 18:53
PROVIDERS: ATTEND Physician Assistant Medical
DX: R06.01 Orthopnea (principal)
CPT/HCPCS: 36415; 80048; 83880; 85025

== ENCOUNTER 2024-04-01 07:07 | Outpatient (CLI) | payer MEDICARE, OTHER ==
[2024-04-01 07:39] LABS: BASOPHILS % (AUTO) 0.8 %; EOSINOPHILS # (AUTO) 0.1 10^3/uL (0.0-0.7); EOSINOPHILS % (AUTO) 2.8 %; LYMPHOCYTES # (AUTO) 1.1 10^3/uL (1.5-3.5); LYMPHOCYTES % (AUTO) 29.9 %; MEAN CORPUSCULAR HEMOGLOBIN 18.9 pg (27.0-31.0); MEAN CORPUSCULAR HGB CONC 27.4 g/dL (32.0-36.0); MEAN CORPUSCULAR VOLUME 69.1 fL (80.0-94.0); MEAN PLATELET VOLUME 9.8 fL (7.4-11.4); MONOCYTES # (AUTO) 0.6 10^3/uL (0.0-1.0); MONOCYTES % (AUTO) 16.9 %; NEUTROPHILS # (AUTO) 1.8 10^3/uL (1.5-6.6); NEUTROPHILS % (AUTO) 49.3 %; NRBC ABSOLUTE COUNT (AUTO) 0.02 x10^3/uL; NUCLEATED RED BLOOD CELLS AUTO 0.6 /100WBC; PLT - PLATELET COUNT 259 10^3/uL (130-450); RED BLOOD COUNT 3.33 10^6/uL (4.70-6.10); RED CELL DISTRIBUTION WIDTH 19.9 % (12.0-15.0); WHITE BLOOD COUNT 3.6 x10^3/uL (4.8-10.8)
[2024-04-01 07:43] LABS: SLIDE REVIEW? Indicated
[2024-04-01 07:46] LABS: HGB - HEMOGLOBIN 6.3 g/dL (14.0-18.0)
[2024-04-01 07:52] LABS: CALCIUM 8.9 mg/dL (8.5-10.3); CREATININE 1.5 mg/dL (0.6-1.3); POTASSIUM 4.3 mmol/L (3.5-4.5)
[2024-04-01 08:04] LABS: PLATELET ESTIMATE, MANUAL NORMAL (130-450,000) (NORMAL); PLATELET MORPHOLOGY NORMAL APPEARANCE (NORMAL); WBC MORPHOLOGY (MULTIPLE) NORMAL APPEARANCE (NORMAL)
== END 2024-04-01 07:08 | disposition home or self-care (01) ==
LOC: LAB 07:07
PROVIDERS: ATTEND Family Medicine
DX: I50.9 Heart failure, unspecified (principal); D64.9 Anemia, unspecified
CPT/HCPCS: 36415; 80048; 85025

== ENCOUNTER 2024-04-01 17:11 | Emergency (ER) | payer MEDICARE, OTHER ==
--- NOTE | 2024-04-01 17:58 | ED Physician Documentation ---
PD HPI DYSPNEA - Stated complaint Stated Complaint: LOW BLOOD COUNT/SENT BY PCP - Chief complaint Chief Complaint: General - History obtained from History obtained from: Patient - History of Present Illness Timing - onset: How many weeks ago (1) Timing - onset during: Light activity (particularly getting of posturally quickly, over the past week or so.) Timing - details: Gradual onset, Still present, Intermittant Associated symptoms: Other (denies melena or blood in stool. Gets nosebleeds periodically that last 5-10 minutes but then stop. None prolonged. No noted hematuria.). No: Fever, Cough, Bilateral edema Recently seen: Clinic (Walk In today with Hgb 6.3 and referred to ER for potential transfusion.) Review of Systems Constitutional: denies: Fever, Chills Nose: reports: Epistaxis (occasionally left nostril.) GI: denies: Abdominal Pain, Hematemesis, Bloody / black stool : denies: Hematuria PD PAST MEDICAL HISTORY - Past Medical History Past Medical History: Yes Cardiovascular: High cholesterol, [place] Respiratory: None Neuro: None Endocrine/Autoimmune: None GI: GERD, Other : Benign prostate hypertrophy HEENT: Chronic vision loss Psych: None Musculoskeletal: None Derm: None - Past Surgical History Past Surgical History: Yes General: Colonoscopy, EGD, Other Ortho: Spine surgery Cardiovascular: Coronary stent - Present Medications Home Medications: Ambulatory Orders Medication Instructions Recorded Confirmed Pantoprazole [Protonix] 40 mg PO QDAC 06/12/22 04/01/24 Tamsulosin [Flomax] 0.4 mg PO QPM 06/12/22 04/01/24 Atorvastatin Calcium 40 mg PO BID 08/29/22 04/01/24 Clopidogrel [Plavix] 1 tab PO DAILY 08/29/22 04/01/24 Metoprolol Succinate [Toprol Xl] 1 tab PO DAILY 08/29/22 04/01/24 Ferrous Gluconate 324 mg PO DAILY #30 tablet 04/01/24 Furosemide [Lasix] 20 mg PO DAILY 04/01/24 04/01/24 Ticagrelor [Brilinta] 90 mg PO DAILY 04/01/24 04/01/24 - Allergies Allergies/Adverse Reactions: Allergies Allergy/AdvReac Type Severity Reaction Status Date / Time No Known Drug Allergies Allergy Verified 04/01/24 17:25 - Social History Does the pt smoke?: No Smoking Status: Never smoker Does the pt drink ETOH?: Yes ETOH Use: Wine Does the pt have substance abuse?: No Substance Use and Type: Marijuana - Immunizations Immunizations are current?: Yes PD ED PE NORMAL - Vitals Vital signs reviewed: Yes - General General: Alert and oriented X 3, No acute distress, Well developed/nourished - Neck Neck: Supple, no meningeal sign, No adenopathy - Cardiac Cardiac: RRR, Other (2/6 murmur left chest without radiation to neck. ) - Respiratory Respiratory: No respiratory distress, Clear bilaterally - Abdomen Abdomen: Soft, Non tender - Rectal Rectal: Deferred (for now, with giving pt time to have BM here; otherwise can do rectal prior to dispo.) - Derm Derm: Normal color, Warm and dry - Extremities Extremities: No tenderness to palpate, No edema, No calf tenderness / cord - Neuro Neuro: Alert and oriented X 3, No motor deficit, Normal speech Eye Opening: Spontaneous Motor: Obeys Commands Verbal: Oriented GCS Score: 15 Results - Vitals Vitals: Vital Signs - 24 hr 04/01/24 04/01/24 04/01/24 17:22 17:24 19:22 Temperature 36.7 C 36.8 C Heart Rate 62 69 61 Heart Rate [ Brachial] Respiratory 16 11 L 17 Rate Blood Pressure 112/71 126/73 128/102 H Blood Pressure [Left Brachial artery] O2 Saturation 100 98 95 04/01/24 04/01/24 04/01/24 19:46 19:53 20:08 Temperature 36.8 C 36.8 C 36.7 C Heart Rate Heart Rate [ 62 63 62 Brachial] Respiratory 16 13 17 Rate Blood Pressure Blood Pressure 144/79 H 144/79 H 132/74 H [Left Brachial artery] O2 Saturation 96 98 97 04/01/24 04/01/24 04/01/24 20:23 20:30 20:38 Temperature 36.8 C 36.7 C Heart Rate 65 Heart Rate [ 68 64 Brachial] Respiratory 67 H 15 24 Rate Blood Pressure 137/61 H Blood Pressure 132/74 H 109/64 [Left Brachial artery] O2 Saturation 100 98 95 04/01/24 04/01/24 04/01/24 20:53 21:18 21:37 Temperature 36.9 C 36.9 C 36.7 C Heart Rate 62 Heart Rate [ 63 63 Brachial] Respiratory 17 17 13 Rate Blood Pressure 108/69 Blood Pressure 108/69 127/73 [Left Brachial artery] O2 Saturation 100 100 99 Oxygen O2 Source Room air - Labs Labs: Microbiology 04/01/24 19:33 Occult Blood - Final Stool Laboratory Tests 04/01/24 04/01/24 04/01/24 07:33 17:53 17:53 WBC 4.1 L RBC 3.18 L Hgb 5.8 L* Hct 22.0 L MCV 69.2 L MCH 18.2 L MCHC 26.4 L RDW 19.9 H Plt Count 258 MPV 9.7 Reticulocyte % (Auto) 1.82 Neut # (Auto) 1.8 Lymph # (Auto) 1.6 Cook # (Auto) 0.6 Eos # (Auto) 0.1 Baso # (Auto) 0.0 Absolute Nucleated RBC 0.02 Nucleated RBC % 0.5 Manual Slide Review Indicated Platelet Estimate NORMAL (130-450,000) Platelet Morphology NORMAL APPEARANCE RBC Morph Micro Appear 1+ SCHISTOCYTES Absolute Retic 0.058 Sodium Potassium Chloride Carbon Dioxide Anion Gap BUN Creatinine Estimated GFR (MDRD) Glucose Calcium Magnesium Iron TIBC % Saturation Transferrin Vitamin B12 Folate Blood Type O POSITIVE Blood Type Recheck O POSITIVE Antibody Screen NEGATIVE Crossmatch IS Only See Detail 04/01/24 04/01/24 17:53 17:53 WBC RBC Hgb Hct MCV MCH MCHC RDW Plt Count MPV Reticulocyte % (Auto) Neut # (Auto) Lymph # (Auto) Cook # (Auto) Eos # (Auto) Baso # (Auto) Absolute Nucleated RBC Nucleated RBC % Manual Slide Review Platelet Estimate Platelet Morphology RBC Morph Micro Appear Absolute Retic Sodium 137 Potassium 4.0 Chloride 107 Carbon Dioxide 26 Anion Gap 4.0 L BUN 17 Creatinine 1.5 H Estimated GFR (MDRD) 56 L Glucose 92 Calcium 8.9 Magnesium 1.8 Iron 11 L TIBC 484 H % Saturation 2 L Transferrin 346 Vitamin B12 3524 H Folate 26.5 Blood Type Blood Type Recheck Antibody Screen Crossmatch IS Only PD Medical Decision Making - ED course Complexity details: reviewed results, considered differential (The patient has anemia that is lower than it had been a few months ago. He states he does have reasonably frequent nosebleeds that last for 5 or 10 minutes at a time but none more prolonged. He had been diagnosed with Hemoccult positive stools with a upper GI earlier this year that was negative. ), d/w patient ED course: The patient has history of anemia but is more pronounced now. He had been feeling lightheaded at times and posteriorly. No vertigo. He had his blood count checked several days ago and it was 6.0. I asked the patient if he was contacted at that point. He states he had not but was contacted to come back for a blood count again today. He was done outpatient was 6.3 and then referred to the ER for presumed transfusion. The patient denies any melena or blood in his stool. He did have a guaiac positive test done last fall I believe he said. He had a upper endoscopy without any findings. Lower endoscopy referral is still in place. He is also being referred to urologist for difficulty with urination but he has not noticed any blood in his urine. He does get intermittent nosebleeds that last for 5 or 10 minutes at a time but nothing more prolonged. He had had iron levels checked as well as a B12 last August which were normal. We can recheck these. His blood count here to verify was 5.8. At this point I would likely believe 2 units of blood would be more appropriate as one is less likely to get above 7.0. It would be good to check his stool currently and so I asked that he try to provide a stool sample. Alternatively could do a rectal exam. Testing for guaiac at this point given the lower count today in the last few days could be appropriate. I can recheck his iron, folate, B12 as well. He did have a thyroid test done just for 2 months ago that was normal. At this point the patient was having some lightheadedness but no dyspnea nor chest pain. I do not necessarily see the admission criteria per se and I believe we have no beds available at this point. The appropriate treatment would likely be to have him here in the ER to get transfused. It is Thursday so we would not be able to set it up through the [facility] clinic for at least 3 to 4 days. Given his lightheadedness and symptoms, sooner seems appropriate. Departure - Departure Clinical Impression: Light-headed feeling, Anemia, Iron deficiency Condition: Stable Record reviewed to determine appropriate education?: Yes Prescriptions: Ferrous Gluconate 324 mg PO DAILY #30 tablet Forms: PCP List
[2024-04-01 18:05] LABS: ABSOLUTE RETICS # AUTO 0.058 10^6/uL (0.020-0.110); BASOPHILS % (AUTO) 0.5 %; EOSINOPHILS # (AUTO) 0.1 10^3/uL (0.0-0.7); EOSINOPHILS % (AUTO) 2.7 %; LYMPHOCYTES # (AUTO) 1.6 10^3/uL (1.5-3.5); MEAN CORPUSCULAR HEMOGLOBIN 18.2 pg (27.0-31.0); MEAN CORPUSCULAR HGB CONC 26.4 g/dL (32.0-36.0); MEAN CORPUSCULAR VOLUME 69.2 fL (80.0-94.0); MEAN PLATELET VOLUME 9.7 fL (7.4-11.4); MONOCYTES # (AUTO) 0.6 10^3/uL (0.0-1.0); MONOCYTES % (AUTO) 14.6 %; NEUTROPHILS # (AUTO) 1.8 10^3/uL (1.5-6.6); NEUTROPHILS % (AUTO) 44.2 %; NRBC ABSOLUTE COUNT (AUTO) 0.02 x10^3/uL; NUCLEATED RED BLOOD CELLS AUTO 0.5 /100WBC; PLT - PLATELET COUNT 258 10^3/uL (130-450); RED BLOOD COUNT 3.18 10^6/uL (4.70-6.10); RED CELL DISTRIBUTION WIDTH 19.9 % (12.0-15.0); RETICULOCYTE COUNT % (AUTO) 1.82 % (0.5-2.3); WHITE BLOOD COUNT 4.1 x10^3/uL (4.8-10.8)
[2024-04-01 18:08] LABS: HGB - HEMOGLOBIN 5.8 g/dL (14.0-18.0)
[2024-04-01 18:14] LABS: MAGNESIUM 1.8 mg/dL (1.7-2.3)
[2024-04-01 18:20] LABS: CALCIUM 8.9 mg/dL (8.5-10.3); CREATININE 1.5 mg/dL (0.6-1.3)
[2024-04-01 18:33] LABS: PLATELET ESTIMATE, MANUAL NORMAL (130-450,000) (NORMAL); PLATELET MORPHOLOGY NORMAL APPEARANCE (NORMAL); SLIDE REVIEW? Indicated
--- NOTE | 2024-04-02 00:06 | ED Physician Documentation ---
ED Addendum - Addendum Addendum: 04/02/24 00:03 Patient endorsed to me by Dr. Carvalho awaiting blood transfusion and discharge. During the period of monitoring when he was receiving blood transfusion he did have a brief episode of wide-complex tachycardia that self resolved and was asymptomatic during that time. Patient was made aware of need to follow up with his primary care provider regarding this and possible need for zio monitor or equivalent. Disposition home Impression 1. anemia 2. GIB Condition stable
[2024-04-02 00:35] LABS: HCT - HEMATOCRIT 26.6 % (42.0-52.0); HGB - HEMOGLOBIN 7.6 g/dL (14.0-18.0)
[2024-04-02 01:06] VITALS: BP 146/87
[2024-04-02 01:39] VITALS: O2SAT 99
== END 2024-04-02 01:38 | disposition home or self-care (01) ==
LOC: ED 17:11
DX: D50.9 Iron deficiency anemia, unspecified (principal); K92.2 Gastrointestinal hemorrhage, unspecified; I50.9 Heart failure, unspecified
CPT/HCPCS: 36415; 36430; 80048; 82272; 82607; 82746; 83540; 83735; 84466; 85014; 85018; 85025; 85045; 86850; 86900; 86901; 86920; 99283; 99285; P9016

== ENCOUNTER 2024-04-20 06:59 | Outpatient (CLI) | payer MEDICARE, OTHER ==
[2024-04-20] MEDS ORDERED: GADOTERATE MEGLUMINE 10 MMOL/20 ML VIAL ONE (07:11)
--- NOTE | 2024-04-20 10:36 | MRI Report ---
PROCEDURE: Pelvis W/WO INDICATIONS: ELEVATED PSA CONTRAST: 16.4ml Clariscan TECHNIQUE: Coronal ultra fast SE, axial T1 FSE with fat saturation, 3-plane nonbreath-hold T2 FSE. After the ad ministration of contrast, dynamic axial, delayed axial and coronal ultra fast GE or 2-D spoiled GE wi th fat saturation through the pelvis. Optional diffusion weighted imaging and ADC may be performed. COMPARISON: None. FINDINGS: Image quality: Diffusion weighted and dynamic contrast enhanced images are diagnostic. Prostate: Gland size is 5.7 x 4.7 x 5.5 cm; ellipsoid gland volume is 76.6 mL. Prostate lesions: Lesion 1: Location: Left posterior medial peripheral zone in the mid gland to apex., on axial series 5, image 1 3 and coronal series 6, image 16. Size: About 1.1 x 1.5 x 1.1 cm. T2W signal: Hypointense DWI signal: Markedly hyperintense ADC signal: Markedly hypointense Enhancement: Yes Extracapsular extension: Possible this abuts the posterior capsule and there is no definite fat plane between the lesion and the anterior rectal serosa. See sagittal series 7 image 15.. No neurovascular involvement. PI-RADS score: 5 Genitourinary system: Bladder wall thickness is normal. Distal ureters are non distended. Bowel and peritoneum: No pathologic free pelvic fluid. Inferior colon and small bowel loops are nor mal in caliber. Nodes and vessels: No pelvic or inguinal adenopathy by size criteria. Iliac vessels are normal in c aliber. Soft tissues: No inguinal hernias. Bones: Bone marrow demonstrates normal overall signal. No suspicious bony lesions. IMPRESSION: There is a single PI-RADS 5 lesion in the left mid gland to apex. Extracapsular extension is suspecte d. No suspicious adenopathy or bone lesion. Reviewed by: Jenny Medina MD on 04/20/2024 10:35 AM PDT Approved by: Jenny Medina MD on 04/20/2024 10:35 AM PDT Station ID: [id number]
[2024-04-20] MEDS: GADOTERATE MEGLUMINE 10 MMOL/20 ML VIAL IVP ONE (17:43)
== END 2024-04-20 07:00 | disposition home or self-care (01) ==
LOC: DI 06:59
PROVIDERS: ATTEND Urology
DX: N42.9 Disorder of prostate, unspecified (principal)
CPT/HCPCS: 72197; A9575

== ENCOUNTER 2024-05-03 12:13 | Day surgery (SDC) | payer OTHER, MEDICARE ==
[2024-05-03] MEDS: LACTATED RINGERS 1,000 ML IV ONE (12:23)
--- NOTE | 2024-05-03 13:23 | ANESTHESIA ---
Pre-Anesthesia VS, & Labs - Diagnosis elevated psa - Procedure TRUS prostate biopsy Vital Signs: Temp Pulse Resp BP Pulse Ox O2 Flow Rate 36.9 C 59 L 14 162/94 H 100 05/03/24 12:57 05/03/24 12:57 05/03/24 12:57 05/03/24 12:57 05/03/24 12:57 Height: 5 ft 10 in Weight (kg): 83.2 kg Body Mass Index: 26.3 BMI Classification: Overweight - NPO >8 hours Home Medications and Allergies Home Medications: Ambulatory Orders Ferrous Gluconate 324 mg PO TID 05/02/24 Nitroglycerin [Nitrostat] 0.4 mg SL PRN 05/02/24 Pantoprazole [Protonix] 40 mg PO BIDAC 06/12/22 Tamsulosin [Flomax] 0.4 mg PO QPM 06/12/22 Atorvastatin Calcium 40 mg PO BID 08/29/22 Metoprolol Succinate [Toprol Xl] 1 tab PO DAILY 08/29/22 Ferrous Gluconate 324 mg PO TID 05/02/24 Nitroglycerin [Nitrostat] 0.4 mg SL PRN 05/02/24 Allergies/Adverse Reactions: Allergies Allergy/AdvReac Type Severity Reaction Status Date / Time No Known Drug Allergies Allergy Verified 04/01/24 17:25 Anes History & Medical History - Anesthetic History Anesthesia Complications: reports: No previous complications - Medical History Cardiovascular: reports: High cholesterol, Coronary artery disease (last visit with cardiology in February. Stated he was doing well.), [place] (2022) Pulmonary: reports: None Gastrointestinal: reports: GERD Urinary: reports: Benign prostate hypertrophy Neuro: reports: None Musculoskeletal: reports: None Endocrine/Autoimmune: reports: None Blood Disorders: reports: Anemia Skin: reports: None Smoking Status: Former smoker (quit 08/08) Psychosocial: reports: No issues indicated History of Cancer?: No - Surgical History General: reports: Colonoscopy, EGD Cardiothoracic: reports: Coronary stent Orthopedic: reports: Spine surgery, Other Exam General: Alert, Oriented x3, Cooperative, No acute distress Dental: Other (nothing loose. edentulous on upper) Mouth Openin Fingerbreadth Neck Mobility: Normal Mallampati classification: II Thyromental Distance: greater than 6 cm Mental/Cognitive Status: Alert/Oriented X3, Normal for patient Plan Anesthesia Type: General, Total IV Consent for Procedure(s) Verified and Reviewed: Yes Code Status: Attempt Resuscitation ASA classification: 3-Severe systemic disease Is this case an emergency?: No
[2024-05-03] MEDS ORDERED: LIDOCAINE-MPF 2% 5 ML VIAL ONE (13:32)
[2024-05-03] MEDS ORDERED: PROPOFOL 200 MG/20 ML VIAL IVP ONE (13:32)
[2024-05-03] MEDS ORDERED: MIDAZOLAM 2 MG/2 ML VIAL ONE (13:33)
[2024-05-03] MEDS ORDERED: fentaNYL 100 MCG/2 ML VIAL ONE (13:33)
[2024-05-03] MEDS ORDERED: fentaNYL 100 MCG/2 ML VIAL IVP PRN (13:40)
[2024-05-03] MEDS ORDERED: HYDROmorphone 0.5 MG/0.5 ML SYRINGE IVP PRN (13:40)
[2024-05-03] MEDS ORDERED: NALOXONE 0.4 MG/ML VIAL IVP PRN (13:40)
[2024-05-03] MEDS ORDERED: ATROPINE ABBOJECT 1 MG/10 ML SYRINGE IVP PRN (13:40)
[2024-05-03] MEDS ORDERED: MORPHINE 2 MG/ML CARPUJECT IVP PRN (13:40)
[2024-05-03] MEDS ORDERED: ONDANSETRON 4 MG/2 ML VIAL IVP PRN (13:40)
[2024-05-03] MEDS ORDERED: ePHEDrine 50 MG/ML VIAL IVP PRN (13:40)
[2024-05-03] MEDS ORDERED: lidocaine 1% 20 ML MDV ONE (13:46)
[2024-05-03] MEDS ORDERED: LACTATED RINGERS 1,000 ML IV SCH (14:00)
[2024-05-03] MEDS: LIDOCAINE 1% 50 ML MDV SUBQ ONE (14:02)
[2024-05-03] MEDS: LACTATED RINGERS 500 ML IV ONE (14:12)
--- NOTE | 2024-05-03 14:13 | Discharge Plan ---
Discharge Plan Problem Reviewed?: Yes Disposition: Home, Self Care Condition: Good Diet: Regular Activity Restrictions: No Restrictions Shower Restrictions: No Driving Restrictions: No Instruction Topics: Biopsy Ultrasound Transrectal Additional Instructions or Follow Up instructions: You have a follow-up with Dr. Alanis on May 12 at 3:45 PM No Smoking: If you smoke, Please STOP! Call for help.
--- NOTE | 2024-05-03 14:16 | OPERATIVE REPORT ---
Operative Report - General Procedure Date: 05/03/24 Planned Procedure: Transrectal ultrasound-guided prostate biopsy Pre-Op Diagnosis: elevated psa Procedure Performed: Transrectal ultrasound-guided prostate biopsy Post Op Diagnosis: elevated psa - Procedure Note Primary Surgeon: Zeke Anesthesia Provider: MEGA Gilbert Anesthesia Technique: MAC Pathology: prostate biopsy samples Estimated Blood Loss (mL): 1 Indications: PIRADS 5 lesion to left medial mid/apex PZ Findings: hypoechoic lesion at area seen on MRI Complications: none - Other Other Information/Narrative: After informed consent was obtained the patient was brought to the OR and laid in the supine position. The patient was then anesthetized per anesthesia protocols and placed in the left lower cubitus position with left side down. A timeout was performed reconfirming the patient, procedure and laterality. A transrectal ultrasound-guided probe was placed per rectum and his prostate was visualized. 5 cc 1% lidocaine was placed at the lateral aspect of the prostate bilaterally. The prostate volume was measured at 74 cc Using 18-gauge biopsy needle we obtained samples of the prostate from the right and left side, the lateral and medial aspects of the base, mid and apex. A hypoechoic area in the left medial midgland correlated to the PIRADS 5 lesion seen on MRI. 2 extra samples were taken from this, for a total of 14 samples. The probe was slowly removed and no bleeding was identified. The patient tolerated procedure well and was brought to the PACU without further incident. He will follow-up in a few weeks time for pathology discussion
[2024-05-03 14:31] VITALS: O2SAT 100
[2024-05-03 14:51] VITALS: BP 169/83
--- NOTE | 2024-05-03 19:00 | ANESTHESIA POST OP EVALUATION ---
Anesthesia Post Eval - Post Anesthesia Eval Vitals: Last Vital Signs Temp 36.3 C L 05/03/24 14:47 Pulse 54 L 05/03/24 14:47 Resp 16 05/03/24 14:47 BP 169/83 H 05/03/24 14:47 Pulse Ox 100 05/03/24 14:47 O2 Flow Rate CV Function Including HR & BP: Stable Pain Control: Satisfactory Nausea & Vomiting: Negative Mental Status: Baseline Respiratory Status: Airway Patent Hydration Status: Satisfactory Anesthesia Complications: None
== END 2024-05-03 12:14 | disposition home or self-care (01) ==
LOC: SDS 12:13
PROVIDERS: ATTEND Urology
PROC: 0VB03ZX Excision of Prostate, Percutaneous Approach, Diagnostic (ICD-10-PCS; principal; 2024-05-03 13:45)
DX: C61 Malignant neoplasm of prostate (principal); Z87.891 Personal history of nicotine dependence
CPT/HCPCS: 55700; J7120

== ENCOUNTER 2024-05-30 09:08 | Outpatient (CLI) | payer MEDICARE, OTHER ==
[2024-05-30 09:40] LABS: ABSOLUTE RETICS # AUTO 0.031 10^6/uL (0.020-0.110); BASOPHILS % (AUTO) 0.8 %; EOSINOPHILS # (AUTO) 0.1 10^3/uL (0.0-0.7); EOSINOPHILS % (AUTO) 1.8 %; HCT - HEMATOCRIT 38.3 % (42.0-52.0); LYMPHOCYTES # (AUTO) 1.3 10^3/uL (1.5-3.5); MEAN CORPUSCULAR HEMOGLOBIN 26.1 pg (27.0-31.0); MEAN CORPUSCULAR HGB CONC 31.3 g/dL (32.0-36.0); MEAN CORPUSCULAR VOLUME 83.4 fL (80.0-94.0); MONOCYTES # (AUTO) 0.4 10^3/uL (0.0-1.0); MONOCYTES % (AUTO) 10.8 %; NEUTROPHILS # (AUTO) 2.1 10^3/uL (1.5-6.6); NEUTROPHILS % (AUTO) 53.6 %; PLT - PLATELET COUNT 151 10^3/uL (130-450); RED BLOOD COUNT 4.59 10^6/uL (4.70-6.10); RED CELL DISTRIBUTION WIDTH 26.5 % (12.0-15.0); RETICULOCYTE COUNT % (AUTO) 0.68 % (0.5-2.3)
[2024-05-30 09:56] LABS: CALCIUM 9.6 mg/dL (8.5-10.3); CREATININE 1.3 mg/dL (0.6-1.3); POTASSIUM 4.5 mmol/L (3.5-4.5)
[2024-05-30 10:14] LABS: FERRITIN 19.5 ng/mL (23.9-336.2)
== END 2024-05-30 09:09 | disposition home or self-care (01) ==
LOC: LAB 09:08
PROVIDERS: ATTEND Family Medicine
DX: K92.2 Gastrointestinal hemorrhage, unspecified (principal); D64.9 Anemia, unspecified; I50.9 Heart failure, unspecified; R06.01 Orthopnea
CPT/HCPCS: 36415; 80048; 82728; 83540; 84466; 85025; 85045

== ENCOUNTER 2024-06-01 09:19 | Outpatient (CLI) | payer MEDICARE, OTHER | END 2024-06-01 09:20 | disposition home or self-care (01) | LOC: DI 09:19 | PROVIDERS: ATTEND Family Medicine | DX: I50.9 Heart failure, unspecified (principal); R06.01 Orthopnea | CPT/HCPCS: 93307 ==